=== PATIENT | female | born 1950 | race Caucasian/White ===

== ENCOUNTER 2020-04-22 08:06 | Outpatient (CLI) | payer OTHER, SELFPAY ==
--- NOTE | ~2020-04-22 | MM_ITS ---
EXAMINATION: MM screening [facility] BI w red HISTORY: Screening mammogram TECHNIQUE: Craniocaudal and mediolateral oblique 3-D tomosynthesis images were obtained and synthetic 2-D images were generated. CAD analysis was submitted and interpreted. COMPARISON: 02/19/2019, 02/17/2018 bilateral digital screening mammogram examinations BREAST PARENCHYMAL COMPOSITION: There are scattered areas of fibroglandular density. FINDINGS: Status post right partial mastectomy for history of breast cancer; there is associated dimi nished volume of the right breast and chronic right fibroglandular asymmetry. Biopsy marker on the left; history of prior benign left breast biopsy. . There is no evidence of suspicious mass, calcification, or interval architectural distortion to sug gest malignancy in either breast. There has been no suspicious interval change. IMPRESSION: 1. No mammographic evidence of malignancy. 2. Recommend routine screening mammography in one year. BI-RADS Category 2: Benign finding(s). Reviewed, dictated and finalized at location A.
== END 2020-04-22 08:07 | disposition home or self-care (01) ==
PROVIDERS: PCP Internal Medicine; Visit Provider Internal Medicine
DX: Z12.31 Encounter for screening mammogram for malignant neoplasm of breast (principal)
CPT/HCPCS: 77063; 77067

== ENCOUNTER 2021-04-30 07:53 | Outpatient (CLI) | payer OTHER, SELFPAY ==
--- NOTE | ~2021-04-30 | MM_ITS ---
EXAMINATION: MM screening [facility] BI w red HISTORY: Screening TECHNIQUE: Craniocaudal and mediolateral oblique 3-D tomosynthesis images were obtained and synthetic 2-D images were generated. CAD analysis was submitted and interpreted. COMPARISON: Comparison to multiple prior studies sequentially, with oldest reviewed study dated 02/17. BREAST PARENCHYMAL COMPOSITION: There are scattered areas of fibroglandular density. FINDINGS: Stable mastectomy changes of the right breast. There is no evidence of suspicious mass, yajaira cification, or architectural distortion to suggest malignancy in either breast. There has been no brando picious interval change. IMPRESSION: 1. No mammographic evidence of malignancy. 2. Recommend routine screening mammography in one year. BI-RADS Category 1: Negative Reviewed, dictated and finalized at location A.
== END 2021-04-30 07:54 | disposition home or self-care (01) ==
LOC: ANHIMG 07:58
PROVIDERS: PCP Internal Medicine; Visit Provider Internal Medicine
DX: Z12.31 Encounter for screening mammogram for malignant neoplasm of breast (principal)
CPT/HCPCS: 77063; 77067

== ENCOUNTER 2022-06-16 14:23 | Outpatient (CLI) | payer OTHER, SELFPAY ==
--- NOTE | ~2022-06-16 | MM_ITS ---
EXAMINATION: MM screening [facility] BI w red HISTORY: Screening mammogram TECHNIQUE: Craniocaudal and mediolateral oblique 3-D tomosynthesis images were obtained and synthetic 2-D images were generated. CAD analysis was submitted and interpreted. COMPARISON: No prior mammogram is available for comparison at this institution. BREAST PARENCHYMAL COMPOSITION: There are scattered areas of fibroglandular density. FINDINGS: Status post right partial mastectomy; history of right radiation therapy. There is a biopsy marker on the left; history of prior benign left breast biopsy. There is no evidence of suspicious m ass, calcification, or interval .architectural distortion to suggest malignancy in either breast. The re has been no suspicious interval change. IMPRESSION: 1. No mammographic evidence of malignancy. 2. Recommend routine screening mammography in one year. BI-RADS Category 2: Benign finding(s). Reviewed, dictated and finalized at location A.
== END 2022-06-16 14:24 | disposition home or self-care (01) ==
PROVIDERS: PCP Internal Medicine; Visit Provider Internal Medicine
DX: Z12.31 Encounter for screening mammogram for malignant neoplasm of breast (principal)
CPT/HCPCS: 77063; 77067

== ENCOUNTER 2023-07-14 07:48 | Outpatient (CLI) | payer OTHER, SELFPAY ==
--- NOTE | ~2023-07-14 | MM_ITS ---
EXAMINATION: MM screening [facility] BI w red HISTORY: Screening mammogram TECHNIQUE: Craniocaudal and mediolateral oblique 3-D tomosynthesis images were obtained and synthetic 2-D images were generated. CAD analysis was submitted and interpreted. COMPARISON: 06/16/2022, 04/30/2021, 04/22/2020 BREAST PARENCHYMAL COMPOSITION:The breasts are heterogeneously dense, which may obscure small masses. FINDINGS: No suspicious mass, calcification, or architectural distortion are identified in either luisa ast to suggest malignancy. There has been no suspicious interval change. IMPRESSION: No mammographic evidence of malignancy. Recommend routine screening mammography in one year. BI-RADS Category 1: Negative Reviewed, dictated and finalized at location .
== END 2023-07-14 07:49 | disposition home or self-care (01) ==
PROVIDERS: PCP Internal Medicine; Visit Provider Internal Medicine
DX: Z12.31 Encounter for screening mammogram for malignant neoplasm of breast (principal)
CPT/HCPCS: 77063; 77067

== ENCOUNTER 2024-08-14 08:44 | Outpatient (CLI) | payer OTHER, SELFPAY ==
--- NOTE | ~2024-08-14 | MM_ITS ---
EXAMINATION: MM screening [facility] BI w red HISTORY: Screening TECHNIQUE: Craniocaudal and mediolateral oblique 3-D tomosynthesis images were obtained and synthetic 2-D images were generated. CAD analysis was submitted and interpreted. COMPARISON: Comparison to multiple prior studies sequentially, with oldest reviewed study dated 02/19. BREAST PARENCHYMAL COMPOSITION: Dense: The breasts are heterogeneously dense, which may obscure small masses FINDINGS: There is distortion and asymmetry of the right breast consistent with previous lumpectomy. There is no evidence of suspicious mass, calcification, or architectural distortion to suggest malign cornelio in either breast. There has been no suspicious interval change. IMPRESSION: 1. No mammographic evidence of malignancy. 2. Recommend routine screening mammography in one year. BI-RADS Category 1: Negative Reviewed, dictated and finalized at location B.
== END 2024-08-14 08:45 | disposition home or self-care (01) ==
PROVIDERS: PCP Internal Medicine; Visit Provider Internal Medicine
DX: Z12.31 Encounter for screening mammogram for malignant neoplasm of breast (principal)
CPT/HCPCS: 77063; 77067

== ENCOUNTER 2025-08-29 08:33 | Outpatient (CLI) | payer OTHER, SELFPAY ==
--- NOTE | ~2025-08-29 | MM_ITS ---
EXAMINATION: MM screening [facility] BI w red HISTORY: Screening TECHNIQUE: Craniocaudal and mediolateral oblique 3-D tomosynthesis images were obtained and synthetic 2-D images were generated. CAD analysis was submitted and interpreted. COMPARISON: Comparison to multiple prior studies sequentially, with oldest reviewed study dated 02/19/2019. BREAST PARENCHYMAL COMPOSITION: Not dense: There are scattered areas of fibroglandular density. FINDINGS: There are changes of right mastectomy. There is no evidence of suspicious mass, calcification, or architectural distortion to suggest malignancy in either breast. There has been no suspicious interval change. IMPRESSION: 1. No mammographic evidence of malignancy. 2. Recommend routine screening mammography in one year. BI-RADS Category 1: Negative Reviewed, dictated and finalized at location B.
--- OUTSIDE RECORDS SUMMARY | 2025-08-29 08:49 | XMS_ITS | Data Portability ---
Author Organization [employer], [facility] Address [address] [place] [address] Care Team Providers Care Doctor Of Radiology Name Role Phone [facility] Assessment No assessment recorded. Plan of Treatment Reminders Order Date Submit Date Provider Last Modified By Organization Details Last Modified Time Details Appointments None record ed. Lab None record ed. Referral None record ed. Procedures None record ed. Surgeries None record ed. Imaging None record ed. Medication Orders None record ed. Patient TargetsNo targets recorded. Patient Instructions Encounter Date Encounter Id Patient Instructions Last Modified By Organization Details Last Modified Time 02/05/2022 [id number] Options of pessary vs surgery discussed. patient states that she will think about it and let me know. [email or web address] Not available 02/05/2022 13:28:59 Reason for Referral None Reported. 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 Petrona Hawkins DO [facility] [place], [address], [facility] 2 19:23:44 Neurofibromato sis type 1 79551868 Active 2021 Petrona Hawkins DO [facility] [place], [address], [facility] [employer] [facility] IV 2 19:24:09 Carcinoma of breast 809343913 Active 2021 Petrona Hawkins DO [address] [place] [address], [phone], [facility] IV 2 19:24:28 Osteopenia 340454602 Active 2021 Petrona Hawkins DO [address] [place] [address], [phone], [facility] IV 2 19:24:47 Vitamin D deficiency 65799052 Active 2021 Petrona Hawkins DO [address] [place] [address], [place], [address], [facility] IV 2 19:25:03 Problem Notes None recorded. Procedures Surgical History Date Name Laterality Status Provider Name and Address Organization Details Recorded Time hysterectomy completed Petrona Hawkins DO [address] [place] [address], [phone], [facility] IV 02/04/2022 19:31:48 diagnostic arthroscopy of temporomandibular joint completed Petrona Hawkins DO [address] [place] [address], [phone], [facility] IV 02/04/2022 19:32:11 lumpectomy of right breast completed Petrona Hawkins DO [address] [place] [address], [phone], [facility] IV 02/04/2022 19:32:23 Imaging Results None recorded. Procedure Notes None recorded. Medical Equipment None Reported. Allergies Allergen ID Allergen Name Allergen Category Reaction Reaction Severity Criticality Documentation Date Start Date Code Code System Note Provider Name and Address Organization Details Recorded Time 390079 cephalexi n medicatio n rash Not available Not available 02/04/2022 2231 RxNorm Petrona Hawkins DO [address] [place] [address], [phone], [facility] IV 19:22:41 [id number] moxifloxa swetha medicatio n rash Not available Not available 02/04/2022 38873 2 RxNorm Petrona Hawkins DO [address] [place] [address], [address], [facility] IV 2 19:22:59 Medications Name Sig Start Date Stop Date Status Note LastModified by Organization Details LastModified Time zinc sulfate 25 mg zinc (110 mg) tablet Take 1 tablet every day by oral route. active Not Available Not Available No t Available acetaminoph en 300 mg-codeine 30 mg tablet TAKE 1 TABLET BY MOUTH FOUR TIMES A DAY NEEDED FOR PAIN FOR TOOTH EXTRACTIO N active Not Available Not Available No t Available fexofenadin e 180 mg tablet Take 1 tablet every day by oral route. active Not Available Not Available No t Available meloxicam 7.5 mg tablet Take 1 tablet every day by oral route. active Not Available Not Available No t Available coenzyme Q10 50 mg capsule Take 1 capsule every day by oral route. active Not Available Not Available No t Available alprazolam 0.25 mg tablet Take 1 tablet 3 times a day by oral route. 02/05 completed Not Available Not Available Not Available B-Complex tablet Take 1 tablet every day by oral route. active Not Available Not Available No t Available Tylenol 8 Hour 650 mg tablet,exte nded release Take 2 tablets every 8 hours by oral route. active Not Available Not Available No t Available melatonin 3mg po qhs active Not Available Not Available No t Available calcium carbonate 1500mg po daily active Not Available Not Available No t Available Vitamin D3 125 mcg (5,000 unit) tablet Take 1 tablet every day by oral route. active Not Available Not Available No t Available omega 3 600 mg-dha 216 mg-epa 324 mg-fish oil 1,200 mg capsule,del rel Take 1 capsule every day by oral route. active Not Available Not Available No t Available Nasacort Allergy 2 sprays as needed active Not Available Not Available No t Available Vitals Date Recorded Body height Body mass index (BMI) Body weight Body temperature Systolic And Diastolic Provider Name and Address Organization Details Last Updated DateTime 02/05/2022 149.86 cm 19.5 kg/m2 34918.3 g 97.1 [degF] 120/80 mm[Hg] Emmy Nova [facility] IV 2 10:35:08 Social History Question Answer Notes LastModified by Organizat ion Details LastModified Time Tobacco Smoking Status Never Smoker Petrona Hawkins, [address], [place], [address], [facility] 02/04/2022 19:33:04 Are You Blind Or Do You Have Difficulty Seeing? No [email or web address] Information not available 02/04/2022 Are You Deaf Or Do You Have Serious Difficulty Hearing? No [email or web address] Information not available 02/04/2022 What Type Of Diet Are You Following? REGULAR Information not available 02/05/2022 What Is Your Relationship Status? Single [email or web address] Information not available 02/04/2022 Are You Sexually Active? No [email or web address] Information not available 02/04/2022 Sex: Unknown Functional Status Question Answer Note LastModified by Organizat ion Details LastModified Time How many times per week do you consume alcohol? 3-4 times per week [email or web address] Information not available 02/04/2022 Do you use any illicit or recreational drugs? No [email or web address] Information not available 02/04/2022 Do you or have you ever used any other forms of tobacco or nicotine? No [email or web address] Information not available 02/04/2022 What is your level of alcohol consumption? Occasional [email or web address] Information not available 02/04/2022 What is your exercise level? None Information not available 02/05/2022 Mental Status None recorded. Family History Relationship Description Onset Age of this Age Resolved Age Notes LastModified by Organization Details LastModified Time Brother Essential hypertension Not available 04/2022 19:33:50 Brother Diabetes mellitus [email or web address] Not available 2021 19:34:17 Mother Essential hypertension [email or web address] Not available 04/2022 19:33:50 Mother Diabetes mellitus [email or web address] Not available 2021 19:34:17 Sister Essential hypertension [email or web address] Not available 04/2022 19:33:50 Sister Neoplasm of esophagus [email or web address] Not available 2021 19:35:02 Father Malignant neoplasm of lung [email or web address] Not available 2021 19:34:35 Medical History Condition Response Osteopenia Y Breast Cancer Y Gynecological History Statement/Question Response Current Control Method Hysterectom y Date of LMP Obstetrics History GPAL:G 0 P 0 0 0 0 Past Encounters Encounter ID Performer Location Encounter Start Date Encounter Closed Date Diagnosis/Indication Diagnosis SNOMED-CT Code Diagnosis ICD10 Code Diagnosis IMO Codes Diagnosis Note [id number] Petrona Hawkins DO [facility] [address] [place] [address] 02/05/2022 10:26:45 02/05/2022 12:34:57 Prolapse of vaginal vault after hysterectomy 96722327 N99.3 Health Concerns Section Related Observation LastModified by Organization Detai ls LastModified Time None Recorded Concern Status LastModified by Organization Details LastModified Time None Recorded Advance Directives Directive None Recorded Payers Insurance Date Sequence Insurance Name Policy Number Policy Nunez Covered Member ID Nunez Member ID Guarantor Name 02/05/2022 1 [facility] (MEDICARE REPLACEMENT HMO) [id number] Tasha Lin [id number] Tasha Lin Notes Date Note Type Note Provider Name and Address Organization Details Recorded Time 02/05/2022 text/html Pelvic ProlapseReported by PatientPatient states her uterus is falling out had hysterectomy states uterus is still there New patient presents today to discuss her cervix is falling down. Patient states that she has a history of a supracervical hysterectomy and she can feel her cervix through her vagina. Having mild vaginal pressure. Petrona Hawkins DO [address] [facility] [facility] [address], [place], [address], [facility] 02/05/2022 13:29:27 OBGyn Episode No OBEpisode recorded.
--- OUTSIDE RECORDS SUMMARY | 2025-08-29 08:49 | XMS_ITS | Clinical Summary ---
Author Organization [facility] [employer] Address [address] 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 This disclosure is being madepursuant to the Care Everywhere program and may not contain all information available regarding this patient. Last updated 18.[facility] [employer] Allergies Active Allergy Reactions Criticality Noted Date Comments Cephalexin 01/22/2014 Medications * Be aware that medications may not be up to date on this document. Alwaysverify current medications with the patient. ALPRAZolam (XANAX) 0.25 MG tablet Take 1 Tab by mouth nightly as needed for Anxiety. 30 Tab 0 01/22/2014 Active calcium carbonate (TUMS) 500 MG chew tablet Take 1 Tab by mouth daily with food. Active Cholecalciferol (VITAMIN D) 1000 UNITS capsule Take 1,000 Units by mouth once daily. Active gabapentin (NEURONTIN) 300 MG capsule Take 1 Cap by mouth 3 times daily. 90 Cap 0 02/19/2014 Active Active Problems Problem Noted Date Diagnosed Date Post herpetic neuralgia 02/19/2014 Hyperlipidemia 01/26/2014 Neurofibromatosis 01/22/2014 HX: breast cancer 01/22/2014 Overview (01/22/2014): 2006, s/p lumpectomy and radiation, tamoxifen Insomnia 01/22/2014 Stress at home 01/22/2014 S/P TAYE-BSO (total abdominal hysterectomy and bilateral salpingo-oophorectomy) 01/22/2014 Resolved Problems Problem Noted Date Diagnosed Date Resolved Date S/P hysterectomy 01/22/2014 01/22/2014 Social History Tobacco Use Types Packs/Day Years Used Date Smoking Tobacco: Never Alcohol Use Standard Drinks/Week Comments No 0 (1 standard drink = 0.6 oz pur e alcohol) Comments No Sex and Gender Information Value Date Recorded Sex Assigned at Not on file Legal Sex Female 12:55 PM [employer] Gender Identity Not on file Sexual Orientation Not on file Last Filed Vital Signs Vital Sign Reading Time Taken Comments Blood Pressure 143/83 02/19/2014 1:13 PM CDT Pulse 103 02/19/2014 1:13 PM CDT Temperature 36.6 C (97.9 F) 02/19/2014 1:13 PM CDT Respiratory Rate - - Oxygen Saturation 97% 02/19/2014 1:13 PM CDT Inhaled Oxygen Concentration - - Weight 51.9 kg (114 lb 8 oz) 02/19/2014 1:13 PM CDT Height 152.4 cm (5') 02/19/2014 1:13 PM CDT Body Mass Index 22.36 02/19/2014 1:13 PM CDT Plan of Treatment Health Maintenance Due Date Last Done Comments BONE DENSITY TESTING 1950 COLOGUARD (AGES 45-75) - COL ON CA SCREENING [address] COLONOGRAPHY - COLON CA SCREENING 1950 FIT - COLON CA SCREENING 1950 FLEX SIG - COLON CA SCREENING 1950 DTAP/TDAP/TD VACCINES (1 - Tdap) 1969 PNEUMOCOCCAL VACCINE 50+ (1 of 1 - PCV) 2000 ZOSTER VACCINE (1 of 2) 2000 COLONOSCOPY - COLON CA SCREENING 10/31/2013 10/31/2003 (Previously completed) Colorectal Cancer Screening 10/31/2013 MAMMOGRAM 07/31/2015 07/31/2013 (Previously completed) LIPID TESTING 01/22/2019 01/22/2014, 01/22/2014 DEPRESSION SCREENING 10/31/2024 COVID-19 VACCINE ( - 2023-2 5 season) 2025 INFLUENZA VACCINE (#1) 2025 Respiratory Syncytial Virus (RSV) Vaccine Pt: or over 60 yrs (1 - 1-dose 75+ series) 2025 HEPATITIS C SCREENING Completed 01/22/2014 , 01/22/2014 HEPATITIS B VACCINE Aged Out No longe r eligible based on patient's age to complete this topic HIB VACCINE Aged Out No longer eligi ble based on patient's age to complete this topic HPV VACCINE Aged Out No longer eligi ble based on patient's age to complete this topic MENINGOCOCCAL (Group B) VACCINE SHARED DECISION-MAKING Aged Out No longer eligible based on patient's age to complete this topic MENINGOCOCCAL GROUPS A/C/Y/W VACCINE Aged Out No longer eligible b ased on patient's age to complete this topic Procedures Procedure Name Priority Date/Time Associated Diagnosis Comments LIPID PROFILE W LDL/HDL RATIO Routine 01/22/2014 1:28 PM CDT Lipid screening HEPATITIS C ANTIBODY Routine 01/22/2014 1:28 PM CDT Need for hepatitis C screening test from Last 3 Months or Most Recently Relevant to Health Maintenance Results * (ABNORMAL) LIPID PROFILE W LDL/HDL (PO REF LAB) (01/22/2014 1:28 PM CDT) [facility] Cholesterol 254(H) 125 - 200 mg/dL [facility] Comment: Test Performed at: [employer] [facility] [place] [address] [place] [address] HEATHER AGUILAR DO,MPH HDL Cholesterol 98 > OR = 46 mg/dL [facility] Triglycerides 93 <150 mg/dL [facility] LDL Direct 154(H) <130 mg/dL [facility] Comment: Desirable range <100 mg/dL for patients with CHD or diabetes and <70 mg/dL for diabetic patients with known heart disease. CHOL/HDLC RATIO 2.6 < OR = 5.0 (calc) [facility] Non HDL Cholesterol 156 mg/dL (calc) [facility] Comment: Target for non-HDL cholesterol is 30 mg/dL higher than LDL cholesterol target. Blood specimen (specimen) BLOOD SPECIMEN / Unknown 01/22/2014 1:28 PM CDT 01/23/2014 3:46 AM CDT Grecia Shelton MD LAB - CHEMISTRY ORDERABLES Leela hampton Result [facility] [id number] [place] [id number] * HEPATITIS C ANTIBODY (01/22/2014 1:28 PM CDT) Hepatitis C Antibody NON-REACTI VE NON-REACT BREONNA [facility] Signal to Cut-Off 0.02 <1.00 [facility] Comment: Test Performed at: [facility] [place] [address] [place] [address] HEATHER AGUILAR DO,MPH Blood specimen (specimen) BLOOD SPECIMEN / Unknown 01/22/2014 1:28 PM CDT 01/23/2014 3:46 AM CDT us Grecia Shelton MD LAB - CHEMISTRY ORDERABLES Leela hampton Result [facility] [address] [place] [address] from Last 3 Months or Most Recently Relevant to Health Maintenance Insurance [address] [address]
== END 2025-08-29 08:34 | disposition home or self-care (01) ==
LOC: ANHFOHIMG 08:37
PROVIDERS: PCP Internal Medicine; Visit Provider Internal Medicine
DX: Z12.31 Encounter for screening mammogram for malignant neoplasm of breast (principal)
CPT/HCPCS: 77063; 77067